=== PATIENT | female | born 1990 | race Two or more races ===

== ENCOUNTER 2021-02-24 14:40 | Emergency (ER) | payer MEDICAID, OTHER ==
[~2021-02-24] VITALS: Ht 152.4 cm; Wt 54.4 kg
[2021-02-24 16:22] LABS: Basophils # (auto) 0 10 ^3/uL (0-0.2); Basophils % (auto) 0.5 % (0.0-2.0); Eosinophils # (auto) 0.1 10 ^3/uL (0-0.8); Eosinophils % (auto) 1.1 % (0.0-7.0); Hematocrit 36.7 % (36.0-46.0); Lymphocytes # (auto) 2.1 10 ^3/uL (0.4-5.4); Mean Corpuscular Hemoglobin 29.1 pg (28.0-32.0); Mean Corpuscular Hgb Conc. 32.7 g/dL (32.0-36.0); Mean Corpuscular Volume 88.9 fL (80.0-100.0); Monocytes # (auto) 0.6 10 ^3/uL (0-1.3); Monocytes % (auto) 6.9 % (0.0-12.0); Neutrophils # (auto) 5.4 10 ^3/uL (1.6-8.6); Neutrophils % (auto) 65.5 % (37.0-80.0); Red Blood Cells 4.13 10^6/uL (4.0-5.20); Red Cell Distribution Width 20.2 % (11.8-14.3); White Blood Cell 8.2 10^3/uL (4.4-10.8)
[2021-02-24 16:31] LABS: Urine Bacteria FEW /hpf (None Seen); Urine Blood 3+ /uL (Negative); Urine Specific Gravity 1.004 (1.001-1.035); Urine WBC 3 /hpf (0 - 5)
[2021-02-24 18:00] VITALS: BP 132/68
== END 2021-02-24 18:21 | disposition home or self-care (01) ==
LOC: ER 14:40
DX: O03.4 Incomplete spontaneous abortion without complication (principal); Z3A.01 Less than 8 weeks gestation of pregnancy
CPT/HCPCS: 36415; 76801; 76817; 81001; 84702; 85025

== ENCOUNTER 2022-04-13 08:29 | Emergency (ER) | payer MEDICAID ==
[~2022-04-13] VITALS: Ht 157.5 cm; Wt 50.2 kg
[2022-04-13 09:37] VITALS: BP 111/64
[2022-04-13 09:40] LABS: Basophils # (auto) 0.1 10 ^3/uL (0-0.2); Basophils % (auto) 0.7 % (0.0-2.0); Eosinophils # (auto) 0.4 10 ^3/uL (0-0.8); Eosinophils % (auto) 4.2 % (0.0-7.0); Hematocrit 39.7 % (36.0-46.0); Hemoglobin 13.5 g/dL (12.2-16.2); Lymphocytes # (auto) 1.7 10 ^3/uL (0.4-5.4); Lymphocytes % (auto) 18.9 % (10.0-50.0); Mean Corpuscular Hemoglobin 33.8 pg (28.0-32.0); Mean Corpuscular Hgb Conc. 34.1 g/dL (32.0-36.0); Mean Corpuscular Volume 99.3 fL (80.0-100.0); Monocytes # (auto) 0.3 10 ^3/uL (0-1.3); Monocytes % (auto) 3.9 % (0.0-12.0); Neutrophils # (auto) 6.5 10 ^3/uL (1.6-8.6); Neutrophils % (auto) 72.3 % (37.0-80.0); Red Blood Cells 3.99 10^6/uL (4.0-5.20); Red Cell Distribution Width 13.4 % (11.8-14.3)
[2022-04-13 09:58] LABS: BUN/Creatinine Ratio 13.7; Potassium 3.9 mmol/L (3.5-5.1)
[2022-04-13 10:46] LABS: Urine Bacteria NONE SEEN /hpf (None Seen); Urine Blood Negative /uL (Negative); Urine Mucus FEW (None Seen); Urine Specific Gravity 1.019 (1.001-1.035); Urine WBC 1 /hpf (0 - 5)
== END 2022-04-13 11:47 | disposition home or self-care (01) ==
LOC: ER 08:32
DX: O26.891 Other specified pregnancy related conditions, first trimester (principal); R10.2 Pelvic and perineal pain; Z3A.01 Less than 8 weeks gestation of pregnancy; Z98.890 Other specified postprocedural states
CPT/HCPCS: 36415; 76801; 80048; 81001; 84702; 85025

== ENCOUNTER 2022-05-09 08:26 | Emergency (ER) | payer MEDICAID ==
[~2022-05-09] VITALS: Ht 154.9 cm; Wt 51.4 kg
[2022-05-09 11:41] LABS: Urine Bacteria NONE SEEN /hpf (None Seen); Urine Blood Negative /uL (Negative); Urine Specific Gravity 1.006 (1.001-1.035); Urine WBC 1 /hpf (0 - 5)
[2022-05-09 13:59] VITALS: BP 106/58
== END 2022-05-09 14:01 | disposition home or self-care (01) ==
LOC: ER 08:26
DX: O46.8X1 Other antepartum hemorrhage, first trimester (principal); Z3A.12 12 weeks gestation of pregnancy
CPT/HCPCS: 36415; 76801; 81001; 81025; 84702

== ENCOUNTER 2022-11-08 13:32 | Observation (INO) | payer MEDICAID ==
[~2022-11-08] VITALS: Ht 154.9 cm; Wt 65.0 kg
[2022-11-08 13:42] VITALS: BP 114/57
== END 2022-11-08 16:45 | disposition home or self-care (01) ==
LOC: ER 13:32 → UNDOADMOB 14:11 → LDRP 14:11 → UNDODISOB 16:45
PROVIDERS: ADMIT Obstetrics & Gynecology; ATTEND Obstetrics & Gynecology
DX: O26.893 Other specified pregnancy related conditions, third trimester (principal); R42 Dizziness and giddiness; R51.9 Headache, unspecified; R10.9 Unspecified abdominal pain; O36.8130 Decreased fetal movements, third trimester, not applicable or unspecified; O26.853 Spotting complicating pregnancy, third trimester; Z3A.37 37 weeks gestation of pregnancy
CPT/HCPCS: 59025; 76818; 81002; 94760; G0378